=== PATIENT | female | born 1985 | race Two or more races ===

== ENCOUNTER 2020-12-03 17:11 | Emergency (ER) | payer OTHER ==
[~2020-12-03] VITALS: Ht 157.5 cm; Wt 79.2 kg
[2020-12-03] MEDS ORDERED: ONDANSETRON 2MG/ML, 2ML IVPush ONE (18:00)
[2020-12-03] MEDS ORDERED: SODIUM CHLORIDE FLUSH 10ML SYR IVF ONE (18:00)
[2020-12-03] MEDS ORDERED: SODIUM CHLORIDE 0.9% 1,000 ML IV ONE (18:00)
[2020-12-03] MEDS ORDERED: SODIUM CHLORIDE 0.9% 1,000ML IVBOLUS ONE (18:00)
[2020-12-03] MEDS ORDERED: ONDANSETRON 2MG/ML, 2ML ONE (18:14)
[2020-12-03] MEDS ORDERED: HYDROmorphone 1 MG/ML, 1ML INJ ONE ×2 (18:14→21:17)
[2020-12-03] MEDS: HYDROmorphone 2 MG/ML, 1ML IVPush PRN ×2 (18:19→21:21)
[2020-12-03 18:24] LABS: BASOPHILS % (AUTO) 0 % (0-1); EOSINOPHILS % (AUTO) 1 % (1-7); LYMPHOCYTES % (AUTO) 15 % (22-44); MEAN CORPUSCULAR HEMOGLOBIN 31.1 pg (27.0-34.8); MEAN CORPUSCULAR HGB CONC 34.7 g/dL (32.4-35.8); MEAN PLATELET VOLUME 7.8 fL (7.4-10.4); MONOCYTES % (AUTO) 9 % (2-9); NEUTROPHILS % (AUTO) 75 % (42-75); PLATELET COUNT 325 x10^3/uL (130-400); RED BLOOD COUNT 4.57 x10^6/uL (3.82-5.3); RED CELL DISTRIBUTION WIDTH 12.8 % (9.6-15.2)
[2020-12-03 18:26] LABS: MD NO
[2020-12-03 18:34] LABS: ALBUMIN 4.1 g/dL (3.4-5.0); ANION GAP 7 mmol/L (5-15); CALCIUM 8.9 mg/dL (8.5-10.1); CHLORIDE 106 mmol/L (98-107)
[2020-12-03 18:40] LABS: ALANINE AMINOTRANSFERASE 49 U/L (12-78); ALKALINE PHOSPHATASE 101 U/L (45-117); BILIRUBIN,TOTAL 0.4 mg/dL (0.2-1.0); CREATININE 0.75 mg/dL (0.55-1.02); TOTAL PROTEIN 8.2 g/dL (6.4-8.2)
[2020-12-03 18:44] LABS: MICROSCOPIC AUTO
--- NOTE | 2020-12-03 20:13 | NUR ---
pt up to ambulate to bathroom walked with steady gait and good balance returned safely to bed. pt able tp provide stool sample for lab. pt in bed with no signs or symptoms of acute distress noted respirations even and unlabored
[2020-12-03 21:21] VITALS: BP 119/62
[2020-12-03 21:22] LABS: CLOSTRIDIUM DIFFICILE ANTIGEN NEGATIVE; CLOSTRIDIUM DIFFICILE TOXIN NEGATIVE (Negative)
--- NOTE | 2020-12-03 21:54 | NUR ---
pt in bed with no signs or symptoms of acute distress noted respirations even and unlabored. pt states she still feels a little woozy from last admin of iv dilaudid, states she would like to stay in bed a bit longer then dc. pt and given dc instructions in the meantime, rx and dc packet given and all questions answered. pt and verbalize appreciation for cares and concern.
== END 2020-12-03 22:27 | disposition home or self-care (01) ==
LOC: ED 17:41
DX: A09 Infectious gastroenteritis and colitis, unspecified (principal); K52.29 Other allergic and dietetic gastroenteritis and colitis; R11.2 Nausea with vomiting, unspecified
CPT/HCPCS: 36415; 80053; 81001; 83690; 84703; 85025; 87324; 89055; 96361; 96374; 96375; 96376; 99285; J1170; J2405; J7030

== ENCOUNTER → 2020-12-03 | Outpatient (CLI) | payer OTHER ==
[~2020-12-03] MED LIST: OMNIPAQUE 350 MG/ML, 100ML BOTTLE ONE
== END | disposition home or self-care (01) ==
LOC: CFH 10:58
PROVIDERS: ATTEND Physician Assistant
DX: R10.813 Right lower quadrant abdominal tenderness (principal)
CPT/HCPCS: 74177; Q9967